=== PATIENT | male | born 1935 | race Caucasian/White ===

== ENCOUNTER 2018-12-16 18:42 | Inpatient (IN) | payer MEDICARE, OTHER ==
[~2018-12-16] VITALS: Ht 172.7 cm; Wt 93.0 kg
[~2018-12-16 18:42] MED LIST: ASPIRIN81 M2; ATORVASTATIN CA10 MG PO; CHERACOL COUGH120 ML PO; CIPROFLOXACIN500 M1 PO; FLOMAX0.4 MG PO; OMEPRAZOLE 20 M20 M1 PO; PROAIR HFA8.5 GM INH; SENOKOT-S1 TA1 PO; STRESS B-COMPL1 EACH; SUDAFED240 MG; TAMSULOSIN HCL0.4 M1; VICODIN 5-5001 EACH PO; VITAMIN D-32000 UNIT
[2018-12-16 18:51] VITALS: BP 115/88
[2018-12-16] MEDS ORDERED: CEFDINIR300 MG PO (18:56)
[2018-12-16] MEDS ORDERED: AMITRIPTYLINE H25 M2 PO (18:56)
[2018-12-16 19:24] LABS: ABSOLUTE BASOPHILS 0.1 thou/uL (0.0-0.2); ABSOLUTE EOSINOPHILS 0.2 thou/uL (0.0-0.7); ABSOLUTE LYMPHOCYTES 2.4 thou/uL (0.8-5.3); ABSOLUTE MONOCYTES 0.7 thou/uL (0.0-1.2); ABSOLUTE NEUTROPHILS 6.3 thou/uL (1.6-8.1); BASOPHILS 0.8 %; EOSINOPHILS 1.8 %; HEMATOCRIT 43.6 % (42.0-52.0); HEMOGLOBIN 14.5 gm/dL (14.0-18.0); LYMPHOCYTES 24.6 %; MCH 30.9 pg (26.0-34.0); MCHC 33.2 g/dL (28.0-37.0); MONOCYTES 7.1 %; MPV 8.4 fl. (7.2-11.1); NUCLEATED RBCS 0 /100WBC; PLATELET COUNT* 268 thou/uL (150-400); POLYS 65.7 %; RBC 4.69 mil/uL (4.50-6.00); RDW-CV 13.5 % (10.5-14.5); WBC 9.6 thou/uL (4.0-11.0)
[2018-12-16 19:40] LABS: ANION GAP 13 mmol/L (7-16); BUN 18 mg/dL (7-18); CALCIUM 8.7 mg/dL (8.5-10.1); CHLORIDE 104 mmol/L (98-107); CO2 23 mmol/L (21-32); CREATININE 1.4 mg/dL (0.6-1.3); GLUCOSE 108 mg/dL (70-99); POTASSIUM 3.8 mmol/L (3.5-5.1); SODIUM 140 mmol/L (136-145)
[2018-12-16 19:44] LABS: ALBUMIN 3.7 g/dL (3.4-5.0); ALKALINE PHOSPHATASE 85 U/L (46-116); LIPASE 135 U/L (73-393); MAGNESIUM 1.8 mg/dL (1.8-2.4); SGOT 19 U/L (15-37); SGPT 31 U/L (30-65); TOTAL BILIRUBIN 0.7 mg/dL (<0.1-1.0); TOTAL PROTEIN 6.8 g/dL (6.4-8.2); TROPONIN-I LEVEL <0.06 ng/mL (<0.06)
[2018-12-16 20:05] VITALS: BP 115/88
[2018-12-16 20:15] VITALS: BP 124/72
[2018-12-17 01:00] VITALS: BP 113/64
[2018-12-17 01:09] LABS: ABSOLUTE BASOPHILS 0.1 thou/uL (0.0-0.2); ABSOLUTE EOSINOPHILS 0.1 thou/uL (0.0-0.7); ABSOLUTE LYMPHOCYTES 3.2 thou/uL (0.8-5.3); ABSOLUTE MONOCYTES 0.6 thou/uL (0.0-1.2); ABSOLUTE NEUTROPHILS 4.8 thou/uL (1.6-8.1); BASOPHILS 0.8 %; EOSINOPHILS 1.6 %; HEMATOCRIT 41.3 % (42.0-52.0); HEMOGLOBIN 13.8 gm/dL (14.0-18.0); LYMPHOCYTES 35.8 %; MCH 31.4 pg (26.0-34.0); MCHC 33.5 g/dL (28.0-37.0); MCV 93.7 fL (80.0-100.0); MONOCYTES 7.3 %; MPV 8.1 fl. (7.2-11.1); NUCLEATED RBCS 0 /100WBC; PLATELET COUNT* 240 thou/uL (150-400); POLYS 54.5 %; RBC 4.41 mil/uL (4.50-6.00); RDW-CV 13.6 % (10.5-14.5); WBC 8.8 thou/uL (4.0-11.0)
[2018-12-17 01:44] LABS: ANION GAP 8 mmol/L (7-16); BUN 18 mg/dL (7-18); CALCIUM 8.9 mg/dL (8.5-10.1); CHLORIDE 106 mmol/L (98-107); CHOLESTEROL 114 mg/dL (<200); CO2 28 mmol/L (21-32); CREATININE 1.2 mg/dL (0.6-1.3); GLUCOSE 108 mg/dL (70-99); HDL CHOLESTEROL 43 mg/dL (>40); LDL CHOLESTEROL 57 mg/dL (<100); SODIUM 142 mmol/L (136-145); TC:HDL 2.7 Ratio (Not establshd); TRIGLYCERIDE 72 mg/dL (<150); VLDL 14 mg/dL (<40)
[2018-12-17 01:46] LABS: SERUM ASSESSMENT CLEAR
[2018-12-17 04:49] VITALS: BP 95/54
[2018-12-17 08:30] VITALS: BP 106/75
[2018-12-17 12:33] VITALS: BP 113/56
--- NOTE | 2018-12-17 16:37 | 2DMMODE ---
[place] [address] 2 D/M-MODE ECHOCARDIOGRAM Name: LAINE VALLADARES Room: [address] IN [facility]#: [id number] Admission: 12/16/18 Attend Phys: Kroy Moss MD Discharge: Date of : 37 Date of Service: 12/17/18 1636 Report #: [id number] THIS REPORT FOR: //name// APPROVED REPORT Study performed: 12/17/2018 10:33:18 EXAM: Comprehensive 2D, Doppler, and color-flow Echocardiogram Patient Location: In-Patient Room #: 219 Status: routine BSA: 2.07 HR: 51 bpm BP: 95/54 mmHg Rhythm: NSR Other Information Study Quality: Good Indications Atrial Fibrillation 2D Dimensions IVSd: 12.14 (7-11mm) LVOT Diam: 20.57 (18-24mm) LVDd: 39.53 mm PWd: 10.34 (7-11mm) Ascending Ao: 30.41 (22-36mm) LVDs: 22.68 (25-40mm) Aortic Root: 34.67 mm Volumes Left Atrial Volume (Systole) LA ESV Index: 22.20 mL/m2 Aortic Valve AoV Peak Ede.: 1.18 m/s AO Peak Gr.: 5.56 mmHg LVOT Max P.06 mmHg AO Mean Gr.: 3.21 mmHg LVOT Mean P.62 mmHg LVOT Max V: 1.12 m/s AO V2 VTI: 23.29 cm LVOT Mean V: 0.75 m/s DEMARCUS (VTI): 2.98 cm2 LVOT V1 VTI: 20.87 cm Mitral Valve E/A Ratio: 1.34 MV Decel. Time: 209.27 ms MV E Max Ede.: 1.09 m/[place] [address] 2 D/M-MODE ECHOCARDIOGRAM Name: LAINE VALLADARES Room: [address] IN .R.#: [id number] Admission: 12/16/18 Attend Phys: Kory Moss MD Discharge: Date of : 37 Date of Service: 12/17/18 1636 Report #: [id number] MV PHT: 60.69 ms MVA (PHT): 3.63 cm2 TDI E/Lateral E': 9.08 E/Medial E': 9.91 Medial E' Ede.: 0.11 m/s Lateral E' Ede.: 0.12 m/s Pulmonary Valve PV Peak Ede.: 0.94 m/s PV Peak Gr.: 3.52 mmHg Tricuspid Valve RAP Estimate: 5.00 mmHg TR Peak Gr.: 24.38 mmHg RVSP: 29.00 mmHg PA Pressure: 29.00 mmHg Left Ventricle The left ventricle is normal size. There is normal LV segmental wall motion. There is normal left ventricular wall thickness. Left ventricular systolic function is normal. The left ventricular ejection fraction is within the normal range. LVEF is 65%. The left ventricular diastolic function is normal. Right Ventricle The right ventricle is normal size. The right ventricular systolic function is normal. Atria The left atrium size is normal. The right atrium size is normal. Aortic Valve Mild aortic valve sclerosis. No aortic regurgitation is present. There is no aortic valvular stenosis. Mitral Valve The mitral valve is normal in structure. Trace mitral regurgitation. No evidence of mitral valve stenosis. Tricuspid Valve The tricuspid valve is normal in structure. Trace tricuspid regurgitation. No pulmonary hypertension. Pulmonic Valve The pulmonary valve is normal in structure. [place] [address] 2 D/M-MODE ECHOCARDIOGRAM Name: LAINE VALLADARES Room: [address] IN [facility]#: [id number] Admission: 12/16/18 Attend Phys: Kory Moss MD Discharge: Date of : 37 Date of Service: 12/17/18 1636 Report #: [id number] Great Vessels The aortic root is normal in size. IVC is normal in size and collapses >50% with inspiration. Pericardium There is no pericardial effusion. <Conclusion> Normal echocardiogram. The left ventricle is normal size. There is normal left ventricular wall thickness. Left ventricular systolic function is normal. The left ventricular ejection fraction is within the normal range. LVEF is 65%. The left ventricular diastolic function is normal. The right ventricle is normal size. The left atrium size is normal. Mild aortic valve sclerosis. No aortic regurgitation is present. There is no aortic valvular stenosis. The mitral valve is normal in structure. The tricuspid valve is normal in structure. IVC is normal in size and collapses >50% with inspiration. There is no pericardial effusion. There is normal LV segmental wall motion. <ELECTRONICALLY SIGNED> By: Lyle Strange MD, FACC 12/17/18 1636 1636 1636 Lyle Strange MD, FACC /INF
--- NOTE | 2018-12-17 17:32 | CARDNUC ---
[place] [address] CARDIAC NUCLEAR IMAGING REPORT Name: LAINE VALLADARES Room: [address] IN [facility]#: [id number] Admission: 12/16/18 Attend Phys: Kory Moss MD Discharge: Date of : 37 Date of Service: 12/17/18 1732 Report #: [id number] THIS REPORT FOR: //name// APPROVED REPORT Study performed: 12/17/2018 14:12:44 Exam: Nuclear Stress Test Indication: new onset of A-fib with RVR Patient Location: In-Patient Room #: 219 Stress Tech: Susan Salinas Stress Nurse: Jessica Whittaker RN Ht: 5 ft 8 in Wt: 205 lbs BSA: 2.07 m2 BMI: 31.16 Medical History Medical History: Hyperlipidemia Medications: Diltiazem, Apixaban, Atorvastatin, Asa 81, Metoprolol Allergies: PCN Cardiac Risk Factors: Age, Hyperlipidemia, FHX of CAD Stress Test Details Stress Test: Pharmacologic stress testing performed using 0.4 mg of regadenoson per 5 mL given IV over 10 seconds. Reason for pharmacologic stress test: physical limitation. HR Resting HR: 62 bpm Max Heart Rate (APMHR): 138 bpm Max HR Achieved: 78 bpm Target HR (85% APMHR): 117 bpm % of APMHR: 56 Recovery HR: 70 bpm HR response to stress: Normal HR response to stress BP Resting BP: 129/65 mmHg Max BP: 108/52 mmHg BP response to stress: Normal blood pressure response to stress. ECG Resting ECG: Sinus Rhythm, normal EKG Stress ECG: Sinus Rhythm, [place] [address] CARDIAC NUCLEAR IMAGING REPORT Name: LAINE VALLADARES Room: [address]#: [id number] Admission: 12/16/18 Attend Phys: Kory Moss MD Discharge: Date of : 37 Date of Service: 12/17/18 1732 Report #: [id number] Change: None Arrhythmia: None Recovery ECG: Sinus Rhythm, normal EKG Recovery ST Change: None Recovery Arrhythmia: None Clinical Reason for Termination: Completed protocol Stress Symptoms: None Nurse Comments Pt unable to do treadmill d/t unsteady on feet and SOB. No sx's during lexiscan test. Stress ECG Conclusion Normal hemodynamic response to pharmacologic stress. Clinical: Non-ischemic Non-diagnostic EKG stress due to failure to attain target HR. NM EXAM: Myocardial Perfusion REST/STRESS Imaging Protocol: Rest Tc-99m/Stress Tc-99m 1 day Resting Data Rest SPECT myocardial perfusion imaging was performed in supine position 30 minutes following the intravenous injection of 11.3 mCi of Tc-99m Sestamibi. Time of rest injection: 12:50 The images were gated to evaluate regional wall motion and calculate left ventricular ejection fraction. Administration Route: IV Administration Site: Right AC Pharmacologic Stress Pharmacologic stress test was performed by injecting Regadenoson 0.4 mg IV push followed by the intravenous injection of 35.8 mCi of Tc-99m Sestamibi. Time of stress injection: 14:25 Administration Route: IV Administration Site: Right AC Heart Rate at time of stress injection: 78 bpm. Gated Stress SPECT was performed 40 minutes after stress injection. The images were gated to evaluate regional wall motion and calculate left ventricular ejection fraction. Prone [place] [address] CARDIAC NUCLEAR IMAGING REPORT Name: LAINE VALLADARES Room: [address] IN [facility].#: [id number] Admission: 12/16/18 Attend Phys: Kory Moss MD Discharge: Date of : 37 Date of Service: 12/17/18 1732 Report #: [id number] Study Quality Study: Good Artifact: Mild Diaphragmatic artifact Lung Uptake: Normal Study Data At rest, the left ventricular ejection fraction was 79%.. Post stress, the left ventricular ejection was 76%.. TID = 1.21. Perfusion The resting study demonstrated a small mild lateral defect and a small very mild inferior defect. The post stress images demonstrated only a small mild inferior defect. Prone images were obtained and were normal. There were no reversible defects seen is no evidence of myocardial ischemia. Images were reviewed using [employer]. Wall Motion Normal left ventricular wall motion. Nuclear Conclusion ECG Findings: non-diagnostic Clinical Findings: non-ischemic Nuclear Findings: negative for ischemia Exercise Capacity: not assessed Left Ventricular Function: normal Risk Study: low Normal study. No scintigraphic evidence for myocardial ischemia or scar. <Conclusion> Normal hemodynamic response to pharmacologic stress. Clinical: Non-ischemic Non-diagnostic EKG stress due to failure to attain target HR. <ELECTRONICALLY SIGNED> By: Bryce Hahn MD, FACC 12/17/18 1732 173 173 Bryce Hahn MD, FACC /INF
--- NOTE | 2018-12-17 18:01 | EKG ---
[place] [address] ELECTROCARDIOGRAM REPORT Name: LAINE VALLADARES Room: [address] ADM IN M.R.#: [id number] Admission: 12/16/18 Attend Phys: Kory Moss MD Discharge: Date of : 37 Report #: [id number] THIS REPORT FOR: //name// [facility] ED Test Date: 2018-12-16 Test Time: 19:15:19 Pat Name: LAINE VALLADARES Department: Room: [facility] Gender: M Senior Product Designer: CATRACHO : 1935 Requested By: Gio Bhatia Order Number: [id number] MD: Kael Hahn Measurements Intervals [place] Rate: 185 P: FL: QRS: 48 QRSD: 95 T: 28 QT: 291 QTc: 511 Interpretive Statements Atrial fibrillation with rapid V-rate Low voltage, precordial leads Abnormal R-wave progression, early transition ST depression, probably rate related No previous ECG available for comparison Electronically Signed On 12-17-2018 18:01:07 CDT by Kael Hahn [email or web address] <ELECTRONICALLY SIGNED> By: Bryce Hahn MD, [facility] 12/17/18 1801 14 14 Bryce Hahn MD, [facility] /EPI
[2018-12-17 20:00] VITALS: BP 140/62
[2018-12-17 21:42] LABS: URINE BILIRUBIN NEGATIVE (Negative); URINE BLOOD NEGATIVE (Negative); URINE CLARITY CLEAR; URINE COLOR YELLOW; URINE GLUCOSE-RANDOM NEGATIVE (Negative); URINE KETONES NEGATIVE (Negative); URINE LEUKOCYTES-REFLEX NEGATIVE (Negative); URINE NITRITE-REFLEX NEGATIVE (Negative); URINE PROTEIN NEGATIVE (Negative); URINE UROBILINOGEN 0.2 E.U./dl (0.2-1.0)
[2018-12-17 21:52] LABS: AMP/METHAMP Negative (Negative); BARBITURATES Negative (Negative); BENZODIAZEPINES Negative (Negative); COCAINE Negative (Negative); METHADONE Negative (Negative); OPIATES Negative (Negative); PCP Negative (Negative); THC Negative (Negative)
[2018-12-18 00:36] VITALS: BP 98/51
[2018-12-18 02:06] LABS: GLYCOHEMOGLOBIN (HGB A1C) 5.9 % (4.8-5.6)
[2018-12-18 04:48] VITALS: BP 118/76
[2018-12-18 05:19] LABS: CALCIUM 8.7 mg/dL (8.5-10.1)
[2018-12-18 08:20] VITALS: BP 138/83
[2018-12-18 12:11] VITALS: BP 120/62
[2018-12-18] MEDS ORDERED: METOPROLOL SUCC25 M1 PO (14:22)
[2018-12-18] MEDS ORDERED: ELIQUIS5 MG PO (14:22)
[2018-12-18 14:49] VITALS: BP 120/62
== END 2018-12-18 15:56 | disposition home or self-care (01) | DRG 309 ==
LOC: M.ERS 18:42 → M.2W 19:22 → M.TBA-ER 19:22 → M.2W 20:22
PROVIDERS: Emergency Medicine Emergency Medical Services; ADMIT Family Medicine
DX: I48.0 Paroxysmal atrial fibrillation (principal); D68.59 Other primary thrombophilia; K21.9 Gastro-esophageal reflux disease without esophagitis; G43.909 Migraine, unspecified, not intractable, without status migrainosus; N40.0 Benign prostatic hyperplasia without lower urinary tract symptoms; N18.3 Chronic kidney disease, stage 3 (moderate); J06.9 Acute upper respiratory infection, unspecified; E78.5 Hyperlipidemia, unspecified; Z88.0 Allergy status to penicillin; Z82.49 Family history of ischemic heart disease and other diseases of the circulatory system; Z83.3 Family history of diabetes mellitus; Z79.82 Long term (current) use of aspirin; Z79.899 Other long term (current) drug therapy

== ENCOUNTER 2018-12-24 00:49 | Observation (INO) | payer MEDICARE, OTHER ==
[2018-12-24] VITALS (8 sets, daily range): BP systolic 97–159; BP diastolic 48–72
[~2018-12-24] VITALS: Ht 172.7 cm; Wt 97.0 kg
[~2018-12-24 00:49] MED LIST changes: +AMITRIPTYLINE H25 M2 PO; +CEFDINIR300 MG PO; +ELIQUIS5 MG PO; +METOPROLOL SUCC25 M1 PO
[2018-12-24 01:17] LABS: ABSOLUTE BASOPHILS 0.1 thou/uL (0.0-0.2); ABSOLUTE EOSINOPHILS 0.3 thou/uL (0.0-0.7); ABSOLUTE LYMPHOCYTES 2.6 thou/uL (0.8-5.3); ABSOLUTE MONOCYTES 0.7 thou/uL (0.0-1.2); ABSOLUTE NEUTROPHILS 4.8 thou/uL (1.6-8.1); BASOPHILS 0.6 %; EOSINOPHILS 3.2 %; HEMATOCRIT 40.3 % (42.0-52.0); HEMOGLOBIN 13.8 gm/dL (14.0-18.0); MCH 31.7 pg (26.0-34.0); MCHC 34.3 g/dL (28.0-37.0); MCV 92.2 fL (80.0-100.0); MONOCYTES 7.9 %; MPV 8.5 fl. (7.2-11.1); NUCLEATED RBCS 0 /100WBC; PLATELET COUNT* 226 thou/uL (150-400); POLYS 57.3 %; RBC 4.37 mil/uL (4.50-6.00); RDW-CV 13.1 % (10.5-14.5); WBC 8.4 thou/uL (4.0-11.0)
[2018-12-24 01:29] LABS: ANION GAP 10 mmol/L (7-16); BUN 16 mg/dL (7-18); CALCIUM 8.4 mg/dL (8.5-10.1); CHLORIDE 105 mmol/L (98-107); CO2 26 mmol/L (21-32); CREATININE 1.1 mg/dL (0.6-1.3); GLUCOSE 165 mg/dL (70-99); POTASSIUM 3.4 mmol/L (3.5-5.1); SODIUM 141 mmol/L (136-145)
[2018-12-24 01:31] LABS: INR 1.1; PROTIME 11.6 Seconds (9.20-11.50)
[2018-12-24 01:40] LABS: ALBUMIN 3.5 g/dL (3.4-5.0); ALKALINE PHOSPHATASE 82 U/L (46-116); NT-PRO BRAIN NAT PEPTIDE 337 pg/mL (<300); SGOT 17 U/L (15-37); SGPT 26 U/L (30-65); TOTAL BILIRUBIN 0.4 mg/dL (<0.1-1.0); TOTAL PROTEIN 6.6 g/dL (6.4-8.2); TROPONIN-I LEVEL <0.06 ng/mL (<0.06)
[2018-12-24 02:38] LABS: URINE BILIRUBIN NEGATIVE (Negative); URINE BLOOD NEGATIVE (Negative); URINE CLARITY CLEAR; URINE COLOR YELLOW; URINE GLUCOSE-RANDOM NEGATIVE (Negative); URINE KETONES NEGATIVE (Negative); URINE LEUKOCYTES-REFLEX NEGATIVE (Negative); URINE NITRITE-REFLEX NEGATIVE (Negative); URINE PROTEIN NEGATIVE (Negative); URINE UROBILINOGEN 0.2 E.U./dl (0.2-1.0)
--- NOTE | 2018-12-24 06:14 | NUR ---
ADMIT TO ROOM 219. ALERT ORIENTED. UP AD LILLIE. NPO FOR CARDIOLOGY CONSULT. PT SCREENED FOR CDIF. ISO CART ORDERED. PT IN CDIF PRECAUTIONS UNTIL R/O. INITALLY ON CARDIZEM QTT AT 10MLS/HR. AFIB 99. PT CONVERTED AND IS NOW SR 52. CARDIZEM QTT TURNED OFF WHEN PT CONVERTED. ON RA. DENIES CP OR DISCOMFORT.
[2018-12-24] MEDS ORDERED: VITAMIN D3400 UNIT PO (06:23)
[2018-12-24] MEDS ORDERED: B12INJ IM (06:24)
--- NOTE | 2018-12-24 08:24 | NUR ---
ASSUMED CARE OF PT THIS AM AROUND 0715- [facility] MONITOR IN PLACE ORDERED, TRACING SB- UPON ASSESSMENT PT NOTED TO BE RESTING IN BED- PT A&O X4- CONTINENT OF B/B- UP AD-LILLIE IN ROOM, STEADY GAIT NOTED- LCTA, RESP EVEN AND [id number]-XNMHAGETRN COUGH NOTED- VSS, O2 SAT 98% ON RA- ABD SOFT/ROUND/NON-TENDER, BS X4 QUADS- LAST BM REPORTED TO BE FORMED ON 12/23/18- IV NOTED TO RIGHT AC INTACT AND SL- CALL LIGHT AND PERSONAL BELONGINGS WITH IN REACH- HOURLY ROUNDS IN PLACE- ALL NEEDS MET AT THIS TIME-WCTM
--- NOTE | 2018-12-24 09:56 | EKG ---
[place] [address] ELECTROCARDIOGRAM REPORT Name: LAINE VALLADARES Room: [address] ADM IN M.R.#: [id number] Admission: 12/24/18 Attend Phys: Mendy Parra MD Discharge: Date of : 37 Report #: [id number] THIS REPORT FOR: //name// [facility] ED Test Date: 2018-12-24 Test Time: 00:57:53 Pat Name: LAINE VALLADARES Department: Room: [facility] Gender: M Auto Machinist: AJ : 1935 Requested By: Avril Payton Order Number: [id number] MD: Daryl Garcia Measurements Intervals [place] Rate: 151 P: ME: QRS: 41 QRSD: 95 T: -89 QT: 289 QTc: 459 Interpretive Statements Atrial fibrillation with rapid V-rate ventricular premature complexes Low voltage, extremity and precordial leads Abnormal R-wave progression, early transition Repolarization abnormality, prob rate related Compared to ECG 12/16/2018 19:15:19 Ventricular premature complex(es) now present Electronically Signed On 12-24-2018 9:56:49 CDT by Daryl Garcia [email or web address] <ELECTRONICALLY SIGNED> By: Daryl Garcia MD, [facility] 12/24/18 0956 0057 0057 Daryl Garcia MD, FAC /EPI
--- NOTE | 2018-12-24 14:41 | EKG ---
[place] [address] ELECTROCARDIOGRAM REPORT Name: LAINE VALLADARES Room: [address] ADM IN M.R.#: [id number] Admission: 12/24/18 Attend Phys: Mendy Parra MD Discharge: Date of : 37 Report #: [id number] THIS REPORT FOR: //name// [facility] Test Date: 2018-12-24 Test Time: 12:57:50 Pat Name: LAINE VALLADARES Department: Room: [address] Gender: M Spud Driller: : 1935 Requested By: Huseyin Busby Order Number: [id number] Jaci MD: Daryl Garcia Measurements Intervals [place] Rate: 64 P: 37 CA: 180 QRS: 14 QRSD: 74 T: 25 QT: 417 QTc: 431 Interpretive Statements Sinus rhythm Low voltage, precordial leads Abnormal R-wave progression, early transition Compared to ECG 12/24/2018 00:57:53 Atrial fibrillation no longer present Electronically Signed On 12-24-2018 14:41:42 CDT by Daryl Garcia [email or web address] <ELECTRONICALLY SIGNED> By: Daryl Garcia MD, [facility] 12/24/18 1441 1257 1257 Daryl Garcia MD, [facility] /EPI
--- NOTE | 2018-12-24 16:08 | NUR ---
Pt is A&O. Resides at home alone in a senior apartment. Active and independent. No DME. No hx of HH or SNF. Per Pt, anticipate dc to home tomorrow. No needs anticipated.
--- NOTE | 2018-12-24 16:33 | NUR ---
PT CURRENTLY RESTING IN RECLINER IN ROOM- GEOGRAPHIC AREA INTELLIGENCE OFFICER IN PLACE ORDERED, TRACING SR- IV TO RIGHT AC INTACT AND SL- PO FLECAINIDE 50MG BID STARTED THIS AM WITH 1ST DOSE GIVEN PRESCIBED- PT DENIES ANY C/O PAIN/DISCOMFORT AT THIS TIME- PT MAKES NEEDS KNOWN- ALL NEEDS MET AT THIS TIME-WCTM
[2018-12-24] MEDS ORDERED: ADVIL200 M3 PO (20:26)
[2018-12-25 00:37] VITALS: BP 134/63
--- NOTE | 2018-12-25 04:45 | NUR ---
ASSUMED CARE OF PT AFTER REPORT AT 1930. PT A&OX4. VSS. PHYSICAL ASSESSMENT COMPLETED AND CHARTED. PT ON RA. PT TRACING SR ON TELE. PT UP ADLIB TO RESTROOM. PT COMPLAINED OF HEADACHE-DR PETTY MADE AWARE WITH NEW ORDERS. PT ABLE TO SLEEP WELL ON BED. CALL LIGHT WITHIN REACH.
[2018-12-25 04:49] VITALS: BP 97/42
[2018-12-25 07:46] VITALS: BP 144/66
--- NOTE | 2018-12-25 09:17 | NUR ---
ASSUMED CARE OF PT THIS AM AROUND 0715- RETURN AGENT IN PLACE ORDERED, TRACING SR- PT A&O X4- CONTINENT OF BOWEL AND BLADDER- UP AD-LILLIE IN ROOM, STEADY GAIT NOTED- LCTA, RESP EVEN AND UN-LABORED- VSS, O2 SAT 93% ON RA- ABD SOFT/ROUND/NON-TENDER, BS X4 QUADS- LAST BM REPORTED ON PRIOR SHIFT- IV NOTED TO RIGHT AC INTACT AND SL- GOOD PO INTAKE NOTED THIS AM WITH BREAKFAST- DENIES ANY C/O PAIN/DISCOMFORT AT THIS TIME- CALL LIGHT AND PERSONAL BELONGINGS WITH IN REACH- PT MAKES NEEDS KNOWN- ALL NEEDS MET AT THIS TIME-WCTM
[2018-12-25 11:00] VITALS: BP 144/66
[2018-12-25] MEDS ORDERED: FLECAINIDE ACET50 M1 PO (11:42)
[2018-12-25 11:43] VITALS: BP 124/56
--- NOTE | 2018-12-25 12:05 | NUR ---
CARLEEAY FOR D/C NOTED PER CARDIOLOGY AND THIS SHIFT WITH ORDERS NOTED- IV TO RIGHT AC D/C'D ALONG WITH ASSEMBLER FINAL PRIOR TO D/C- D/C EDUCATION/TEACHING/NEEDED FOLLOW UP COMMUNICATED TO PT PRIOR TO D/C WITH ALL QUESETIONS AND CONCERNS ADDRESSED PRIOR TO D/C- WRITTEN EDUCATION ALONG WITH SCRIPT PROVIDED TO PT PRIOR TO D/C- BELONGINGS PACKED AND ACCOUNTED FOR PER PT- PT CURRENTLY DRESSED AND AWAITING RIDE FOR D/C- ALL NEEDS MET AT THIS TIME-SANDI
--- NOTE | 2018-12-25 12:47 | EKG ---
[place] [address] ELECTROCARDIOGRAM REPORT Name: JACQUELYNLAINE KIM Room: [address] M.R.#: [id number] Admission: 12/24/18 Attend Phys: Mendy Parra MD Discharge: Date of : 37 Report #: [id number] THIS REPORT FOR: //name// [facility] Test Date: 2018-12-25 Test Time: 08:03:28 Pat Name: LAINE VALLADARES Department: Room: [address] Gender: M Actuarial Internship: : 1935 Requested By: Araseli Thomas Order Number: [id number] Reading MD: Daryl Garcia Measurements Intervals [place] Rate: 67 P: 55 NM: 190 QRS: 10 QRSD: 95 T: 23 QT: 431 QTc: 455 Interpretive Statements Sinus rhythm Low voltage, precordial leads Abnormal R-wave progression, early transition Compared to ECG 12/24/2018 12:57:50 No significant changes Electronically Signed On 12-25-2018 12:47:22 CDT by Daryl Garcia [email or web address] <ELECTRONICALLY SIGNED> By: Daryl Garcia MD, [facility] 12/25/18 1247 0803 0803 Daryl Garcia MD, [facility] /EPI
== END 2018-12-25 12:48 | disposition home or self-care (01) ==
LOC: M.ERS 00:49 → M.2W 02:19 → M.TBA-ER 02:19 → M.2W 05:07
PROVIDERS: Emergency Medicine; ADMIT Internal Medicine
DX: I48.2 Chronic atrial fibrillation (principal); J06.9 Acute upper respiratory infection, unspecified; K21.9 Gastro-esophageal reflux disease without esophagitis; G43.909 Migraine, unspecified, not intractable, without status migrainosus; N40.0 Benign prostatic hyperplasia without lower urinary tract symptoms; Z79.899 Other long term (current) drug therapy

== ENCOUNTER 2019-01-15 13:20 | Inpatient (IN) | payer MEDICARE, OTHER ==
[~2019-01-15] VITALS: Ht 172.7 cm; Wt 157.4 kg
[~2019-01-15 13:20] MED LIST changes: +ADVIL200 M3 PO; +B12INJ IM; +FLECAINIDE ACET50 M1 PO; +VITAMIN D3400 UNIT PO
[2019-01-15 13:26] VITALS: BP 146/89
[2019-01-15] MEDS ORDERED: PACERONE200 MG PO (13:30)
[2019-01-15 13:46] LABS: ABSOLUTE EOSINOPHILS 0.2 thou/uL (0.0-0.7); ABSOLUTE MONOCYTES 0.6 thou/uL (0.0-1.2); ABSOLUTE NEUTROPHILS 3.6 thou/uL (1.6-8.1); BASOPHILS 0.5 %; EOSINOPHILS 2.8 %; HEMATOCRIT 41.7 % (42.0-52.0); HEMOGLOBIN 14.2 gm/dL (14.0-18.0); LYMPHOCYTES 40.2 %; MCH 31.4 pg (26.0-34.0); MCV 92.3 fL (80.0-100.0); MONOCYTES 7.7 %; MPV 8.6 fl. (7.2-11.1); NUCLEATED RBCS 0 /100WBC; PLATELET COUNT* 261 thou/uL (150-400); POLYS 48.8 %; RBC 4.52 mil/uL (4.50-6.00); RDW-CV 13.2 % (10.5-14.5); WBC 7.4 thou/uL (4.0-11.0)
[2019-01-15 13:56] LABS: CREATININE 1.2 mg/dL (0.6-1.3); POTASSIUM 3.8 mmol/L (3.5-5.1)
[2019-01-15 13:58] LABS: INR 1.2; PROTIME 11.9 Seconds (9.20-11.50)
[2019-01-15 14:10] LABS: ALBUMIN 3.6 g/dL (3.4-5.0); CK-MB MASS 1.2 ng/mL (<0.5-3.6); MAGNESIUM 1.9 mg/dL (1.8-2.4); TOTAL BILIRUBIN 0.7 mg/dL (<0.1-1.0); TOTAL PROTEIN 6.8 g/dL (6.4-8.2)
[2019-01-15 15:56] VITALS: BP 118/81
[2019-01-15 16:30] VITALS: BP 96/52
--- NOTE | 2019-01-15 18:47 | NUR ---
REC PT FROM ER AROUND 1600. Joshua CALLE ON TELE. PT UP AD LILLIE, HOURLY ROUNDING PERFORMED, POSSESSIONS AND CALL LIGHT WITHIN REACH. PT RESTING COMFORTABLY IN ROOM.
[2019-01-15 20:00] VITALS: BP 121/41
--- NOTE | 2019-01-15 20:04 | NUR ---
THIS RN HAS REVIEWED AND AGREES WITH THE ASSESSMENT AND CHARTING OF ASHLEY GALLO.
[2019-01-16 00:42] VITALS: BP 108/58
[2019-01-16 03:53] VITALS: BP 115/55
[2019-01-16 04:18] LABS: ABSOLUTE EOSINOPHILS 0.3 thou/uL (0.0-0.7); ABSOLUTE LYMPHOCYTES 3.2 thou/uL (0.8-5.3); ABSOLUTE MONOCYTES 0.6 thou/uL (0.0-1.2); ABSOLUTE NEUTROPHILS 3.6 thou/uL (1.6-8.1); BASOPHILS 0.3 %; EOSINOPHILS 3.5 %; HEMATOCRIT 37.1 % (42.0-52.0); HEMOGLOBIN 12.4 gm/dL (14.0-18.0); LYMPHOCYTES 42.2 %; MCHC 33.5 g/dL (28.0-37.0); MCV 92.5 fL (80.0-100.0); MONOCYTES 7.6 %; MPV 8.3 fl. (7.2-11.1); NUCLEATED RBCS 0 /100WBC; PLATELET COUNT* 210 thou/uL (150-400); POLYS 46.4 %; RBC 4.01 mil/uL (4.50-6.00); RDW-CV 13.4 % (10.5-14.5); WBC 7.7 thou/uL (4.0-11.0)
[2019-01-16 04:28] LABS: CALCIUM 8.7 mg/dL (8.5-10.1); CREATININE 1.1 mg/dL (0.6-1.3); POTASSIUM 3.7 mmol/L (3.5-5.1)
--- NOTE | 2019-01-16 05:23 | NUR ---
ASSUMED CARE OF PT AFTER REPORT AT 1930. PT A&OX4. VSS. PHYSICAL ASSESSMENT COMPLETED AND CHARTED. PT ON RA. PT TRACING SR/1ST DEG ON TELE. PT UP ADLIB TO RESTROOM. PT DENIES ANY PAIN OR DISCOMFORT. PT ABLE TO SLEEP WELL ON BED. CALL LIGHT WITHIN REACH.
[2019-01-16 08:00] VITALS: BP 128/78
[2019-01-16] MEDS ORDERED: FLECAINIDE ACET50 M1 PO (08:49)
[2019-01-16 12:00] VITALS: BP 139/70
[2019-01-16 14:04] VITALS: BP 139/70
--- NOTE | 2019-01-16 14:23 | EKG ---
[place] [address] ELECTROCARDIOGRAM REPORT Name: LAINE VALLADARES Room: [address] ADM IN M.R.#: [id number] Admission: 01/15/19 Attend Phys: Delfino Carcamo MD Discharge: Date of : 37 Report #: [id number] THIS REPORT FOR: //name// [facility] ED Test Date: 2019-01-15 Test Time: 13:26:47 Pat Name: LAINE VALLADARES Department: Room: [facility] Gender: M Phlebotomy Services Representative: : 1935 Requested By: Ricardo Tavera Order Number: [id number] MD: Kael Hahn Measurements Intervals [place] Rate: 137 P: ID: QRS: -75 QRSD: 94 T: 21 QT: 337 QTc: 509 Interpretive Statements Atrial flutter Ventricular premature complex Abnormal R-wave progression, early transition Inferior infarct, old Prolonged QT interval Compared to ECG 12/25/2018 08:03:28 Ventricular premature complex(es) now present Myocardial infarct finding now present Prolonged QT interval now present Sinus rhythm no longer present Electronically Signed On 01-16-2019 14:23:31 CDT by Kael Hahn [email or web address] <ELECTRONICALLY SIGNED> By: Bryce Hahn MD, FACC 01/16/19 1423 1326 1326 Bryce Hahn MD, FACC /EPI
--- NOTE | 2019-01-16 17:29 | NUR ---
ASSUMED PT CARES AROUND 0700. PT NOTED TO BE IN GOOD SPIRITS. VSS, HOURLY ROUNDS WERE PERFORMED, MEDS ADMINISTERED PER DR ORDERS. DISCHARGED PKG REVIEWED ET PT COMMUNICATED UNDERSTANDING. TEL MONITOR ET IV REMOVED PRIOR TO TAKING PT TO [facility] VIA W/C. PT'S BELONGS WERE IN PTS LAP DISCHARGING OUT OF BUILDING ET [facility].
== END 2019-01-16 14:55 | disposition home or self-care (01) | DRG 309 ==
LOC: M.ERS 13:20 → M.TBA-ER 14:04 → M.2W 16:05
PROVIDERS: Family Medicine; ADMIT Internal Medicine
DX: I48.0 Paroxysmal atrial fibrillation (principal); D68.69 Other thrombophilia; N40.0 Benign prostatic hyperplasia without lower urinary tract symptoms; K21.9 Gastro-esophageal reflux disease without esophagitis; G43.909 Migraine, unspecified, not intractable, without status migrainosus; E11.9 Type 2 diabetes mellitus without complications; Z79.899 Other long term (current) drug therapy; Z88.0 Allergy status to penicillin; Z82.49 Family history of ischemic heart disease and other diseases of the circulatory system; Z83.3 Family history of diabetes mellitus

== ENCOUNTER 2019-04-23 14:02 | Observation (INO) | payer MEDICARE, OTHER ==
[~2019-04-23] VITALS: Ht 172.7 cm; Wt 97.1 kg
[~2019-04-23 14:02] MED LIST changes: +PACERONE200 MG PO
[2019-04-23 14:04] VITALS: BP 140/62
[2019-04-23] MEDS ORDERED: FLECAINIDE ACE150 MG PO (14:14)
[2019-04-23 15:19] LABS: ABSOLUTE EOSINOPHILS 0.1 thou/uL (0.0-0.7); ABSOLUTE LYMPHOCYTES 1.2 thou/uL (0.8-5.3); ABSOLUTE MONOCYTES 0.5 thou/uL (0.0-1.2); ABSOLUTE NEUTROPHILS 5.5 thou/uL (1.6-8.1); BASOPHILS 0.6 %; EOSINOPHILS 1.6 %; HEMOGLOBIN 12.8 gm/dL (14.0-18.0); LYMPHOCYTES 16.6 %; MCH 31.2 pg (26.0-34.0); MCHC 33.8 g/dL (28.0-37.0); MCV 92.5 fL (80.0-100.0); MONOCYTES 6.2 %; MPV 7.9 fl. (7.2-11.1); NUCLEATED RBCS 0 /100WBC; PLATELET COUNT* 213 thou/uL (150-400); RBC 4.11 mil/uL (4.50-6.00); RDW-CV 13.7 % (10.5-14.5); WBC 7.3 thou/uL (4.0-11.0)
[2019-04-23 15:28] LABS: CALCIUM 7.8 mg/dL (8.5-10.1); CREATININE 1.1 mg/dL (0.6-1.3)
[2019-04-23 15:31] LABS: APTT 29.9 Seconds (25.0-31.3); INR 1.2; PROTIME 12.2 Seconds (9.20-11.50)
[2019-04-23 15:39] LABS: ALBUMIN 3.3 g/dL (3.4-5.0); TOTAL BILIRUBIN 0.7 mg/dL (<0.1-1.0); TOTAL PROTEIN 6.4 g/dL (6.4-8.2)
--- NOTE | 2019-04-23 16:09 | EKG ---
[place] [address] ELECTROCARDIOGRAM REPORT Name: LAINE VALLADARES Room: [facility]#: [id number] Admission: 04/23/19 Attend Phys: Discharge: Date of : 37 Report #: [id number] THIS REPORT FOR: //name// [facility] ED Test Date: 2019-04-23 Test Time: 14:09:31 Pat Name: LAINE VALLADARES Department: Room: Gender: Check Weigher: : 1935 Requested By: Johnson Pacheco Order Number: [id number] MD: Lyle Strange Measurements Intervals [place] Rate: 67 P: -48 ND: 191 QRS: 54 QRSD: 129 T: 22 QT: 485 QTc: 512 Interpretive Statements Sinus rhythm Right bundle branch block Compared to ECG 01/15/2019 13:26:47 Right bundle-branch block now present Atrial flutter no longer present Ventricular premature complex(es) no longer present Myocardial infarct finding no longer present Prolonged QT interval no longer present Electronically Signed On 04-23-2019 16:08:56 HEDGE [employer]D PRINCIPAL by Lyle Strange [email or web address] <ELECTRONICALLY SIGNED> By: Lyle Strange MD, [facility] 04/23/19 1608 1409 1409 Lyle Strange MD, [facility] /EPI
[2019-04-23 17:39] LABS: URINE BILIRUBIN NEGATIVE (Negative); URINE BLOOD NEGATIVE (Negative); URINE CLARITY CLEAR; URINE COLOR YELLOW; URINE GLUCOSE-RANDOM NEGATIVE (Negative); URINE KETONES NEGATIVE (Negative); URINE LEUKOCYTES-REFLEX NEGATIVE (Negative); URINE NITRITE-REFLEX NEGATIVE (Negative); URINE PROTEIN NEGATIVE (Negative); URINE UROBILINOGEN 0.2 E.U./dl (0.2-1.0)
[2019-04-23 20:04] VITALS: BP 164/75
[2019-04-23 20:30] VITALS: BP 162/70
[2019-04-23 23:57] VITALS: BP 123/67
[2019-04-24 04:00] VITALS: BP 138/67
--- NOTE | 2019-04-24 04:46 | NUR ---
RECEIVED REPORT FROM TEACHER OF FAMILY AND CONSUMER SCIENCE NOEMI AT 1958. PT ARRIVED TO UNIT VIA BED AT 2014. NURSING ASSESSMENT COMPLETED AT START OF SHIFT. SR WITH 1D AND BBB ON VP SALES. HIGH PRECAUTIONS IN PLACE. HOURLY ROUNDING COMPLETED. NEGATIVE SEPSIS SCREENING THIS SHIFT. CALL LIGHT WITHIN REACH.
[2019-04-24 07:57] VITALS: BP 113/64
--- NOTE | 2019-04-24 08:12 | NUR ---
ASSUMED CARE OF PT THIS AM AROUND 0715- FINE ARTS PACKER IN PLACE ORDERED, TRACING SR/1ST DEGREE/BBB- UPON ASSESSMENT PT NOTED TO BE RESTING IN BED- PT A&O X4- CONTINENT OF B/B- SBA WITH TRANSFERS FOR SAFETY-LCTA, RESP EVEN AND UN-LABORED- VSS, O2 SAT 92% ON RA- ABD SOFT/ROUND/NON-TENDER, BS X4 QUADS- LAST BM REPORTED X2 DAYS AGO- IV NOTED TO LEFT HAND SL/INTACT-PT RATES PAIN 3/10 TO HEAD THIS AM, DARK QUIET ENVIRONMANR IN PLACE- CALL LIGHT AND PERSONAL BELONGINGS WITH IN REACH- PT MAKES NEEDS KNOWN-ALL NEEDS MET AT THIS TIME-WCTM
[2019-04-24 11:34] VITALS: BP 115/57
[2019-04-24 16:00] VITALS: BP 145/69
[2019-04-24 20:16] VITALS: BP 135/54
[2019-04-25] VITALS: BP 104/41
[2019-04-25 04:00] VITALS: BP 116/60
--- NOTE | 2019-04-25 06:51 | NUR ---
PT IS ABLE TO COMMUNICATE HIS NEEDS TO STAFF EFFECTIVELY. CURRENT PAIN MEDICATION REGIMEN HAS BEEN ADEQUATE FOR CONTROLLING HIS PAIN UP TO THIS TIME. POSSIBLE DISCHARGE TOMORROW.
[2019-04-25] MEDS ORDERED: TRANSDERM-SCOP1 EACH TRANSDERM (09:28)
[2019-04-25] MEDS ORDERED: MELATONIN5 M1 PO (09:28)
[2019-04-25] MEDS ORDERED: MECLIZINE HCL25 MG PO (09:28)
[2019-04-25] MEDS ORDERED: CEFDINIR300 MG PO (09:28)
[2019-04-25 09:38] VITALS: BP 122/63
--- NOTE | 2019-04-25 11:00 | NUR ---
ASSUMED CARE OF PT THIS AM AROUND 0715- COMPUTER SYSTEM TECHNICIAN IN PLACE ORDERED, TRACING SR/1ST DEGREE/BBB- UPON ASSESSMENT PT NOTED TO BE RESTING IN BED- PT A&O X4- CONTIENT OF B/B- SBA WITH TRANSFERS FOR SAFETY- LCTA, RESP EVEN AND UN-LABORED- VSS, O2 SAT 94% ON RA- ABD SOFT/ROUND/NON-TENDER, BS X4 QUAD- IV NOTED TO RIGHT AC INTACT AND SL- CALL LIGHT AND PERSONAL BELONGINGS WITH IN REACH- PT MAKES NEEDS KNOWN- ALL NEEDS MET AT THIS TIME-WCTM
[2019-04-25 11:39] VITALS: BP 122/63
[2019-04-25 12:04] VITALS: BP 103/56
== END 2019-04-25 14:45 | disposition home health service (06) ==
LOC: M.ERS 14:02 → M.TBA-ER 16:27 → M.2W 21:21
PROVIDERS: Emergency Medicine; ADMIT Internal Medicine
DX: R42 Dizziness and giddiness (principal); N40.0 Benign prostatic hyperplasia without lower urinary tract symptoms; K21.9 Gastro-esophageal reflux disease without esophagitis; G43.909 Migraine, unspecified, not intractable, without status migrainosus; I48.20 Chronic atrial fibrillation, unspecified

== ENCOUNTER 2019-05-16 12:48 | Emergency (ER) | payer MEDICARE, OTHER ==
[~2019-05-16] VITALS: Ht 172.7 cm; Wt 93.0 kg
[~2019-05-16 12:48] MED LIST changes: +FLECAINIDE ACE150 MG PO; +MECLIZINE HCL25 MG PO; +MELATONIN5 M1 PO; +TRANSDERM-SCOP1 EACH TRANSDERM
[2019-05-16 13:27] LABS: ABSOLUTE BASOPHILS 0.1 thou/uL (0.0-0.2); ABSOLUTE EOSINOPHILS 0.1 thou/uL (0.0-0.7); ABSOLUTE LYMPHOCYTES 2.2 thou/uL (0.8-5.3); ABSOLUTE MONOCYTES 0.4 thou/uL (0.0-1.2); ABSOLUTE NEUTROPHILS 3.3 thou/uL (1.6-8.1); BASOPHILS 1.4 %; EOSINOPHILS 2.3 %; HEMOGLOBIN 12.8 gm/dL (14.0-18.0); MCH 31.2 pg (26.0-34.0); MCHC 33.7 g/dL (28.0-37.0); MCV 92.8 fL (80.0-100.0); MONOCYTES 6.8 %; MPV 8.7 fl. (7.2-11.1); NUCLEATED RBCS 0 /100WBC; PLATELET COUNT* 236 thou/uL (150-400); POLYS 53.5 %; RBC 4.09 mil/uL (4.50-6.00); WBC 6.2 thou/uL (4.0-11.0)
[2019-05-16 14:00] LABS: CALCIUM 7.8 mg/dL (8.5-10.1); CREATININE 1.1 mg/dL (0.6-1.3); POTASSIUM 3.8 mmol/L (3.5-5.1)
[2019-05-16 14:10] LABS: ALBUMIN 3.3 g/dL (3.4-5.0); TOTAL BILIRUBIN 0.9 mg/dL (<0.1-1.0); TOTAL PROTEIN 6.4 g/dL (6.4-8.2)
[2019-05-16] MEDS ORDERED: MECLIZINE HCL25 M1 PO (15:17)
[2019-05-16 15:48] VITALS: BP 139/78
--- NOTE | 2019-05-19 13:56 | EKG ---
[place] [address] ELECTROCARDIOGRAM REPORT Name: LAINE VALLADARES Room: [facility]#: [id number] Admission: 05/16/19 Attend Phys: Discharge: 05/16/19 Date of : 37 Date of Service: 05/16/19 1327 Report #: [id number] THIS REPORT FOR: cc: Kael Potter MD, Douglas W. MD Holkins, John M. MD [facility] ~ THIS REPORT FOR: //name// [facility] ED Test Date: 2019-05-16 Test Time: 13:27:34 Pat Name: LAINE VALLADARES Department: Room: Gender: M Contracting Manager: KEVYN : 1935 Requested By: Sacha Fletcher Order Number: [id number] MD: Lyle Strange Measurements Intervals [place] Rate: 50 P: 22 NM: 234 QRS: 48 QRSD: 123 T: 5 QT: 522 QTc: 477 Interpretive Statements Sinus rhythm Prolonged NM interval IVCD, consider atypical RBBB Compared to ECG 04/23/2019 14:09:31 First degree AV block now present Electronically Signed On 05-17-2019 16:02:43 MANAGER DEVELOPMENT by Lyle Strange [email or web address] <ELECTRONICALLY SIGNED> By: Lyle Strange MD, [facility] 05/17/19 1602 1327 1327 Lyle Strange MD, [facility] /EPI
== END 2019-05-16 15:49 | disposition home or self-care (01) ==
LOC: M.ERS 12:48
PROVIDERS: Physician Assistant
DX: R42 Dizziness and giddiness (principal); I48.91 Unspecified atrial fibrillation; K21.9 Gastro-esophageal reflux disease without esophagitis; G43.909 Migraine, unspecified, not intractable, without status migrainosus; Z88.0 Allergy status to penicillin

== ENCOUNTER 2020-08-05 20:26 | Emergency (ER) | payer MEDICARE, OTHER ==
[~2020-08-05] VITALS: Ht 172.7 cm; Wt 93.0 kg
[~2020-08-05 20:26] MED LIST changes: +MECLIZINE HCL25 M1 PO
[2020-08-05] MEDS ORDERED: AMITRIPTYLINE H25 M3 PO (20:41)
[2020-08-05 21:01] LABS: ABSOLUTE EOSINOPHILS 0.1 thou/uL (0.0-0.7); ABSOLUTE LYMPHOCYTES 2.5 thou/uL (0.8-5.3); ABSOLUTE MONOCYTES 0.6 thou/uL (0.0-1.2); ABSOLUTE NEUTROPHILS 3.5 thou/uL (1.6-8.1); BASOPHILS 0.3 %; HEMATOCRIT 38.7 % (42.0-52.0); HEMOGLOBIN 12.7 gm/dL (14.0-18.0); LYMPHOCYTES 36.7 %; MCH 31.6 pg (26.0-34.0); MCHC 32.8 g/dL (28.0-37.0); MCV 96.1 fL (80.0-100.0); MONOCYTES 8.9 %; NUCLEATED RBCS 0 /100WBC; PLATELET COUNT* 224 thou/uL (150-400); POLYS 52.1 %; RBC 4.03 mil/uL (4.50-6.00); RDW-CV 13.6 % (10.5-14.5); WBC 6.7 thou/uL (4.0-11.0)
[2020-08-05 21:11] LABS: CALCIUM 8.6 mg/dL (8.5-10.1); CREATININE 1.3 mg/dL (0.6-1.3); POTASSIUM 3.6 mmol/L (3.5-5.1)
[2020-08-05 21:13] LABS: APTT 29.8 Seconds (25.0-31.3); INR 1.1
[2020-08-05 21:15] LABS: ALBUMIN 3.7 g/dL (3.4-5.0); TOTAL BILIRUBIN 0.6 mg/dL (<0.1-1.0); TOTAL PROTEIN 6.6 g/dL (6.4-8.2)
[2020-08-05] MEDS ORDERED: HYDROCODON-ACE1 EAC7 PO (22:11)
[2020-08-05 22:30] VITALS: BP 173/79
--- NOTE | 2020-08-07 13:41 | EKG ---
[place] [address] ELECTROCARDIOGRAM REPORT Name: JACQUELYNLAINE KIM Room: [facility]#: [id number] Admission: 08/05/20 Attend Phys: Discharge: 08/05/20 Date of : 37 Date of Service: 08/05/202032 Report #: [id number] THIS REPORT FOR: //name// [facility] ED Test Date: 2020-08-05 Test Time: 20:33:11 Pat Name: LAINE VALLADARES Department: Room: Gender: Imaging Nurse: [place] : 1935 Requested By: Марина Bower Order Number: [id number] Jaci MD: Daryl Garcia Measurements Intervals [place] Rate: 75 P: 14 AR: 239 QRS: 22 QRSD: 138 T: 1 QT: 458 QTc: 512 Interpretive Statements Sinus rhythm Prolonged AR interval Right bundle branch block Compared to ECG 05/16/2019 13:27:34 rate has increased Electronically Signed On 08-07-2020 13:41:35 CDT by Daryl Garcia [email or web address] <ELECTRONICALLY SIGNED> By: Daryl Garcia MD, [facility] 08/07/20 1341 32 32 Daryl Garcia MD, [facility] /EPI
== END 2020-08-05 22:30 | disposition home or self-care (01) ==
LOC: M.ERS 20:26
PROVIDERS: Personal Emergency Response Attendant
DX: G43.909 Migraine, unspecified, not intractable, without status migrainosus (principal); Z88.0 Allergy status to penicillin; K21.9 Gastro-esophageal reflux disease without esophagitis; I48.91 Unspecified atrial fibrillation

== ENCOUNTER 2020-10-03 12:45 | Emergency (ER) | payer MEDICARE, OTHER ==
[~2020-10-03] VITALS: Ht 172.7 cm; Wt 92.5 kg
[~2020-10-03 12:45] MED LIST changes: +AMITRIPTYLINE H25 M3 PO; +HYDROCODON-ACE1 EAC7 PO
[2020-10-03] MEDS ORDERED: CEPHALEXIN500 MG PO (13:33)
[2020-10-03 13:38] VITALS: BP 151/70
== END 2020-10-03 13:39 | disposition home or self-care (01) ==
LOC: M.ERS 12:45
DX: S20.221A Contusion of right back wall of thorax, initial encounter (principal); K21.9 Gastro-esophageal reflux disease without esophagitis; I48.91 Unspecified atrial fibrillation; G43.909 Migraine, unspecified, not intractable, without status migrainosus; Z88.0 Allergy status to penicillin; W01.0XXA Fall on same level from slipping, tripping and stumbling without subsequent striking against object, initial encounter; Y93.89 Activity, other specified; Y92.89 Other specified places as the place of occurrence of the external cause; Y99.8 Other external cause status

== ENCOUNTER 2020-12-29 22:17 | Emergency (ER) | payer MEDICARE, OTHER ==
[~2020-12-29] VITALS: Ht 172.7 cm; Wt 86.2 kg
--- NOTE | ~2020-12-29 | EMS ---
[facility] [address] [place] [address] EMS Patient Care Report Name: LAINE VALLADARES Room: PRE M.R.#: [id number] Admission: Attend Phys: Discharge: Date of : 37 Report #: [id number] THIS REPORT FOR: //name// Report Transmitted: 12/29/2020 22:37 EMS Care Summary [facility] [employer] [facility] Incident [id number] @ 12/29/2020 21:28 Incident Location [address] Patient LAINE VALLADARES Male, 85 Years 1935 Patient Address [address] [place] [id number] Patient History Atrial Fibrillation, Patient Allergies Penicillin allergy, Patient Medications Tamsulosin, Omeprazole, Flecainide, Eliquis, Atorvastatin, Hydrocodone, Chief Complaint syncope Disposition Transported No Lights/[place] Reason Unconscious/Fainting Transported To [facility] Narrative Dispatched to [facility] for 85y/o male who "passed out" but is now conscious. Upon arrival pt. was sitting on the ground, alert and oriented. Pt. initially stated that he did not want to go to a hospital. Pt. was moved to the ambulance to get out of the rain. Pizza Baker who was on scene stated that he saw pt. have a [address] [place] [address] EMS Patient Care Report Name: LAINE VALLADARES Room: PRE [facility]#: [id number] Admission: Attend Phys: Discharge: Date of : 37 Report #: [id number] syncope episode and fall to the ground. Pt. was then helped up and had syncope again but was helped to the ground. Pt. may have hit his head on the ground but that was not confirmed. Pt. stated that he did not remember falling. Pt. states that his only medical history is A-fib. Pt. stated that he had a headache all day and took half of a 500mg Hydrocodone before going to the football game. Pt. VS were stable with BG 116. Pt. still wanted to refuse transport but EMS strongly advised pt. to be evaluated in the ED and pt. agreed. Pt. was transported to [place] for emergency services. Initial Vitals @22:01P: 76,BP: 150/87,SpO2: 99, @22:11P: 81,BP: 160/65,SpO2: 98, @21:38P: 76,R: 18,BP: 170/82,GCS: 15,Glucose: 116,SpO2: 97,Revised Trauma: 12, @21:51P: 78,R: 18,BP: 155/76,GCS: 15,SpO2: 98,Revised Trauma: 12, Impression Syncope / Fainting Procedures @21:55Saline Lock 10cc (20 ga) Site: Hand-LeftResponse: UnchangedSucceeded@21:4012-Lead ECGResponse: UnchangedSucceeded Timeline 21:28,Call Received 21:28,Dispatched 21:29,En Route 21:33,On Scene 21:35,At Patient 21:38,BP: 170/82 M,PULSE: 76,RR: 18 R,SPO2: 97 Ox,ETCO2: ,B,PAIN: ,GCS: 15, 21:40,12-Lead ECG,Response: UnchangedSucceeded, 21:49,Depart Scene 21:51,BP: 155/76 M,PULSE: 78,RR: 18 R,SPO2: 98 Ox,ETCO2: ,BG: ,PAIN: ,GCS: 15, 21:55,Saline Lock 10cc 20 ga Site: Hand-Left,Response: UnchangedSucceeded, 22:01,BP: 150/87 M,PULSE: 76,RR: R,SPO2: 99 Ox,ETCO2: ,BG: ,PAIN: ,GCS: , 22:11,BP: 160/65 M,PULSE: 81,RR: R,SPO2: 98 Ox,ETCO2: ,BG: ,PAIN: ,GCS: , 22:14,At Destination 22:16,Transfer Patient 22:28,Call Closed 22:47,In District Disclaimer v1.1 Copyright 2020 [employer] This EMS Care Summary contains data elements from the applicable legal record (which may be displayed differently). It is [place] [address] EMS Patient Care Report Name: LAINE VALLADARES Room: PRE ER M.R.#: [id number] Admission: Attend Phys: Discharge: Date of : 37 Report #: [id number] information for the following purposes: continuity of care, clinical quality, and state data reporting. The complete legal record is available to ED staff and administrators of the receiving hospital in [facility]'s Patient Tracker. All data is provided "as is."
[~2020-12-29 22:17] MED LIST changes: +CEPHALEXIN500 MG PO
[2020-12-29] MEDS ORDERED: ASA81BEC PO (22:31)
[2020-12-29 22:56] LABS: ABSOLUTE EOSINOPHILS 0.1 thou/uL (0.0-0.7); ABSOLUTE LYMPHOCYTES 1.9 thou/uL (0.8-5.3); ABSOLUTE MONOCYTES 0.6 thou/uL (0.0-1.2); ABSOLUTE NEUTROPHILS 4.8 thou/uL (1.6-8.1); BASOPHILS 0.5 %; EOSINOPHILS 1.4 %; HEMOGLOBIN 12.7 gm/dL (14.0-18.0); LYMPHOCYTES 25.3 %; MCH 31.5 pg (26.0-34.0); MCHC 33.4 g/dL (28.0-37.0); MCV 94.2 fL (80.0-100.0); MONOCYTES 8.2 %; MPV 7.3 fl. (7.2-11.1); NUCLEATED RBCS 0 /100WBC; PLATELET COUNT* 234 thou/uL (150-400); POLYS 64.6 %; RBC 4.04 mil/uL (4.50-6.00); WBC 7.4 thou/uL (4.0-11.0)
[2020-12-29 23:05] LABS: CALCIUM 8.8 mg/dL (8.5-10.1); CREATININE 1.3 mg/dL (0.6-1.3)
[2020-12-29 23:09] LABS: ALBUMIN 3.9 g/dL (3.4-5.0); TOTAL BILIRUBIN 0.6 mg/dL (<0.1-1.0); TOTAL PROTEIN 7.2 g/dL (6.4-8.2)
[2020-12-30 00:09] LABS: URINE BILIRUBIN NEGATIVE (Negative); URINE BLOOD NEGATIVE (Negative); URINE CLARITY CLEAR; URINE COLOR YELLOW; URINE GLUCOSE-RANDOM NEGATIVE (Negative); URINE KETONES TRACE (Negative); URINE LEUKOCYTES-REFLEX NEGATIVE (Negative); URINE NITRITE-REFLEX NEGATIVE (Negative); URINE PROTEIN NEGATIVE (Negative); URINE SPECIFIC GRAVITY >= 1.030 (1.005-1.030); URINE UROBILINOGEN 0.2 E.U./dl (0.2-1.0)
[2020-12-30 02:13] VITALS: BP 180/66
--- NOTE | 2020-12-30 11:52 | EKG ---
[place] [address] ELECTROCARDIOGRAM REPORT Name: VALLADARESLAINE KIM Room: [facility]#: [id number] Admission: 12/29/20 Attend Phys: Discharge: 12/30/20 Date of : 37 Date of Service: 12/29/202223 Report #: [id number] THIS REPORT FOR: //name// [facility] ED Test Date: 2020-12-29 Test Time: 22:24:15 Pat Name: LAINE VALLADARES Department: Room: Gender: Arch [employer] Operator: : 1935 Requested By: Avril Payton Order Number: [id number] MD: Kael Hahn Measurements Intervals [place] Rate: 79 P: -28 TN: 191 QRS: -17 QRSD: 142 T: 2 QT: 467 QTc: 536 Interpretive Statements Sinus rhythm Right bundle branch block Baseline wander in lead(s) V4 Compared to ECG 08/05/2020 20:33:11 First degree AV block no longer present Electronically Signed On 12-30-2020 11:52:10 CDT by Kael Hahn [email or web address] <ELECTRONICALLY SIGNED> By: Bryce Hahn MD, [facility] 12/30/20 1152 23 23 Bryce Hahn MD, [facility] /EPI
== END 2020-12-30 02:14 | disposition home or self-care (01) ==
LOC: M.ERS 22:17
PROVIDERS: Emergency Medicine
DX: R55 Syncope and collapse (principal); Z20.822 Contact with and (suspected) exposure to COVID-19; R45.1 Restlessness and agitation; K21.9 Gastro-esophageal reflux disease without esophagitis; G43.909 Migraine, unspecified, not intractable, without status migrainosus; I48.91 Unspecified atrial fibrillation; Z88.0 Allergy status to penicillin